=== PATIENT | female | born 1970 | race Native Hawaiian/Other Pacific Islander ===

== ENCOUNTER 2017-03-09 16:17 | Emergency (ER) | payer MEDICAID ==
[~2017-03-09] VITALS: Ht 172.7 cm; Wt 95.5 kg
[~2017-03-09 16:17] MED LIST: NOCURR
[2017-03-09] MEDS ORDERED: GABA-531 PO (16:54)
[2017-03-09 19:48] VITALS: BP 130/69
[2017-03-09] MEDS ORDERED: ALBUTEROL SULFATE HFA 90 MCG/PUFF 8 GM INHALER IH ONE (20:00)
== END 2017-03-09 20:06 | disposition home or self-care (01) ==
LOC: EMS 16:19
DX: J98.01 Acute bronchospasm (principal); J06.9 Acute upper respiratory infection, unspecified; Z88.0 Allergy status to penicillin; Z88.2 Allergy status to sulfonamides
CPT/HCPCS: 71020; 81025; 94640; 99284; J3535